=== PATIENT | female | born 1990 | race Caucasian/White ===

== ENCOUNTER 2020-02-20 08:28 | Day surgery (SDC) | payer MEDICAID, SELFPAY ==
[~2020-02-20] VITALS: Ht 162.6 cm; Wt 56.2 kg
[2020-02-20 09:06] LABS: HCG,QUAL RESULT NEGATIVE (NEGATIVE)
[2020-02-20] MEDS ORDERED: BUPIVACAINE /EPINEPHRINE/PF 0.25% 30 ML VIAL INJ ONE (11:41)
[2020-02-20] MEDS ORDERED: DESFLURANE 15 MIN GAS INH ONE (11:41)
[2020-02-20] MEDS ORDERED: DEXAMETHASONE SOD PHOSPHATE 4 MG/ML VIAL IVP ONE (11:41)
[2020-02-20] MEDS ORDERED: ROCURONIUM BROMIDE 10 MG/ML (ZEMURON) IV ONE (11:41)
[2020-02-20] MEDS ORDERED: SUGAMMADEX SODIUM 200 MG/2 ML VIAL IV ONE (11:41)
[2020-02-20] MEDS ORDERED: PROPOFOL 200MG/ 20ML VIAL (DIPRIVAN) IV ONE (11:41)
[2020-02-20] MEDS ORDERED: fentaNYL CITRATE/PF 100 MCG/2 ML AMP IVP ONE (11:41)
[2020-02-20] MEDS ORDERED: NS IRRIG SOLN 1000 ML IR ONE (11:41)
[2020-02-20] MEDS ORDERED: ONDANSETRON HCL 4 MG/2 ML VIAL IVP ONE (11:41)
[2020-02-20] MEDS ORDERED: MIDAZOLAM HCL 5 MG/5 ML VIAL IVP ONE (11:41)
[2020-02-20] MEDS ORDERED: LR 1,000 ML IV.SOLN IV ONE (11:41)
[2020-02-20] MEDS ORDERED: KETOROLAC TROMETHAMINE 30 MG VIAL IVP ONE (11:41)
[2020-02-20] MEDS ORDERED: MEPERIDINE HCL/PF 25 MG/ML DISP.SYRIN IVP PRN (12:30)
[2020-02-20] MEDS ORDERED: ONDANSETRON HCL 4 MG/2 ML VIAL IVP PRN (12:30)
[2020-02-20] MEDS ORDERED: MIDAZOLAM HCL 2 MG/2 ML VIAL (VERSED) IVP PRN (12:30)
[2020-02-20] MEDS ORDERED: HYDROmorphone 1 MG INJ. 1 MG/ML AMPUL IVP PRN (12:30)
[2020-02-20] MEDS ORDERED: METOCLOPRAMIDE HCL 10 MG/2 ML VIAL IVP PRN (12:30)
[2020-02-20] MEDS ORDERED: LR 1,000 ML IV SCH (12:30)
[2020-02-20] MEDS: HYDROmorphone 1 MG INJ. 1 MG/ML AMPUL IVP PRN ×2 (13:13→13:23)
[2020-02-20 15:33] VITALS: BP_SYST 96
== END 2020-02-20 16:20 | disposition home or self-care (01) ==
LOC: SDS 08:28 → SMU 08:28 → SDS 16:20
PROVIDERS: ATTEND Otolaryngology
DX: J35.01 Chronic tonsillitis (principal); R13.12 Dysphagia, oropharyngeal phase; N39.0 Urinary tract infection, site not specified; Z88.0 Allergy status to penicillin; Z88.1 Allergy status to other antibiotic agents; Z88.8 Allergy status to other drugs, medicaments and biological substances
CPT/HCPCS: 36415; 84703; 88304; C9399; J1100; J1885; J2250; J2405; J2704; J3010; J3465; J3490; J7120

== ENCOUNTER 2020-02-25 12:20 | Emergency (ER) | payer MEDICAID, SELFPAY ==
[~2020-02-25] VITALS: Ht 162.6 cm; Wt 53.5 kg
[2020-02-25 12:20] VITALS: BP_SYST 105
[2020-02-25] MEDS: NACL 0.9% 1,000 ML IV ONE (13:22)
[2020-02-25] MEDS: cefTRIAXone 1 GM in D5W 50 ML IV ONE (13:23)
[2020-02-25] MEDS: MORPHINE 2 MG/ML INJ. SYRINGE IVP ONE (13:25)
[2020-02-25] MEDS: ONDANSETRON HCL 4 MG/2 ML VIAL IVP ONE (13:25)
[2020-02-25 14:05] VITALS: BP_SYST 105
== END 2020-02-25 14:05 | disposition home or self-care (01) ==
LOC: SED 12:20
DX: R07.0 Pain in throat (principal)
CPT/HCPCS: 70360; 96365; 96375; 99284; J7030